=== PATIENT | male | born 1940 | race Caucasian/White ===

== ENCOUNTER 2023-08-10 09:11 | Day surgery (SDC) | payer MEDICARE, OTHER ==
[~2023-08-10] VITALS: Ht 172.7 cm; Wt 66.6 kg
[2023-08-10 09:42] VITALS: BP 119/71; PULSE 70; RESP 16; TEMP 97.3; O2SAT 98
[2023-08-10] MEDS ORDERED: ATOR20TA66 PO (09:46)
[2023-08-10] MEDS ORDERED: CLOP75TA34 PO (09:46)
[2023-08-10] MEDS ORDERED: ASPI-1265 PO (09:46)
[2023-08-10] MEDS ORDERED: CARV12.549 PO (09:46)
[2023-08-10] MEDS ORDERED: LAN0.125T PO (09:46)
[2023-08-10] MEDS ORDERED: METF-437 PO (09:46)
[2023-08-10] MEDS ORDERED: RAMI10CA78 PO (09:46)
[2023-08-10] MEDS ORDERED: AMLO5TAB16 PO (09:46)
[2023-08-10 10:30] VITALS: RESP 16; O2SAT 98
[2023-08-10] MEDS ORDERED: LIDOcaine 1% W/epiNEPHrine 1:100,000 20ml vial ONE ×2 (14:56→14:58)
[2023-08-10] MEDS ORDERED: heparin 1,000 UNITS/NS 500ml 0 ML ONE (14:56)
[2023-08-10] MEDS ORDERED: ceFAZolin 1000mg inj ONE ×2 (14:58→15:22)
[2023-08-10] MEDS ORDERED: fentaNYL/PF 50MCG/1 ML 2ML syringe ONE (15:15)
[2023-08-10] MEDS ORDERED: midazolam 1 mg/ML 2ml injection ONE (15:15)
[2023-08-10 16:00] VITALS: BP 157/89; PULSE 70; RESP 16; O2SAT 97
[2023-08-10] MEDS: ondansetron/PF 4mg/2ml inj ONE (16:06)
[2023-08-10] MEDS: normal saline 1,000 ML IV SCH (16:07)
[2023-08-10 16:15] VITALS: BP 138/79; PULSE 70; RESP 16; O2SAT 94
[2023-08-10] MEDS ORDERED: LORazepam 1 MG tablet PO PRN (16:15)
[2023-08-10] MEDS ORDERED: HYDROcodone/acetaminophen 5mg/325mg tablet PO PRN (16:15)
[2023-08-10] MEDS ORDERED: HYDROcodone/acetaminophen 10/325mg tab PO PRN (16:15)
[2023-08-10 16:30] VITALS: BP 135/77; PULSE 67; RESP 16; O2SAT 96
[2023-08-10 16:45] VITALS: BP 116/95; PULSE 76; RESP 16; O2SAT 95
[2023-08-11] MEDS ORDERED: ceFAZolin/D5W- 1GM premix 50 ML IV SCH
== END 2023-08-10 17:30 | disposition home or self-care (01) ==
LOC: SSTAY O 09:11
PROVIDERS: ATTEND Student in an Organized Health Care Education/Training Program
DX: T82.111A Breakdown (mechanical) of cardiac pulse generator (battery), initial encounter (principal); I11.0 Hypertensive heart disease with heart failure; I50.9 Heart failure, unspecified; I25.10 Atherosclerotic heart disease of native coronary artery without angina pectoris; E78.00 Pure hypercholesterolemia, unspecified; I42.9 Cardiomyopathy, unspecified; G47.33 Obstructive sleep apnea (adult) (pediatric); Z79.84 Long term (current) use of oral hypoglycemic drugs; Z79.899 Other long term (current) drug therapy; Y71.2 Prosthetic and other implants, materials and accessory cardiovascular devices associated with adverse incidents; Y92.89 Other specified places as the place of occurrence of the external cause
CPT/HCPCS: 33264; 82948; 93005; 99152; C1882; J0690; J2250; J2405; J3010; J3490; J7030; 33229; A6258; J1644